=== PATIENT | male | born 1970 | race African-American/Black ===

== ENCOUNTER 2017-11-05 22:57 | Emergency (ER) | payer OTHER ==
[2017-11-06] MEDS ORDERED: IBUPROFEN 400 MG TABLET ONE (00:39)
[2017-11-06] MEDS ORDERED: IBUPROFEN 200 MG TAB ONE (00:40)
== END 2017-11-06 01:23 | disposition home or self-care (01) ==
LOC: EDH 22:57
DX: S93.692A Other sprain of left foot, initial encounter (principal); S90.02XA Contusion of left ankle, initial encounter; Z72.0 Tobacco use; W51.XXXA Accidental striking against or bumped into by another person, initial encounter; Y93.61 Activity, american tackle football; Y92.89 Other specified places as the place of occurrence of the external cause; Y99.8 Other external cause status
CPT/HCPCS: 73600; 73620